=== PATIENT | female | born 1990 | race Caucasian/White ===

== ENCOUNTER 2019-12-28 07:10 | Inpatient (IN) ==
[2019-12-28] MEDS: LACTATED RINGERS 1,000 ML IV SCH ×2 (07:30→17:07)
[2019-12-28] MEDS ORDERED: miSOPROStoL 200 MCG TABLET VAG PRN (08:05)
[2019-12-28] MEDS ORDERED: LACTATED RINGERS 500 ML IV PRN (08:05)
[2019-12-28] MEDS ORDERED: TERBUTALINE 1 MG/1 ML VIAL SUBCUT PRN (08:05)
[2019-12-28] MEDS ORDERED: BUTORPHANOL 2 MG/ML VIAL IV PRN (08:05)
[2019-12-28] MEDS ORDERED: LIDOCAINE 1% 50 ML VIAL MISC INJ ONE (08:05)
[2019-12-28] MEDS ORDERED: CARBOPROST TROMETHAMINE 250 MCG/ML AMP IM PRN (08:05)
[2019-12-28 08:53] LABS: Basophils % 0.3 % (0.0-0.8); Eosinophils # 0.1 10*3/uL (0.0-0.87); Eosinophils % 0.8 % (0.00-10.9); Hematocrit 35.5 VOL% (35.7-47.0); Hemoglobin 11.5 GM/DL (12.0-16.0); Immature Granulocytes % 1.4 %; Immature Granulocytes Absolute 0.13 #; Lymphocytes # 2.2 10*3/uL (1.4-4.0); Mean Corpuscular HGB Conc 32.4 GM/DL (32-36); Mean Corpuscular Volume 89.2 FL (87-102); Mean Platelet Volume 10.7 FL (9.6-12.0); Monocytes % 9.7 % (1.7-12.7); Neutrophils % 63.8 % (38.7-73.9); Platelet Count 277 T/CUMM (130-400); Red Blood Count 3.98 MC/CUMM (3.8-5.5); Red Cell Distribution Width 14.8 % (9.3-17.3)
[2019-12-28] MEDS: OXYTOCIN/LR 20 UNIT/1,000 ML BAG IV SCH (09:11)
[2019-12-28] MEDS ORDERED: CITRIC ACID/SODIUM CITRATE 30 ML UDCUP PO ONE (18:58)
[2019-12-28] MEDS ORDERED: FAMOTIDINE 20 MG/2 ML VIAL IV ONE (18:58)
[2019-12-28] MEDS ORDERED: LACTATED RINGERS 1,000 ML IV ONE (18:58)
[2019-12-28] MEDS ORDERED: NALOXONE 0.4 MG/ML VIAL IV PRN (18:58)
[2019-12-28] MEDS ORDERED: hydrOXYzine HCL 25 MG/1 ML VIAL IM PRN (18:58)
[2019-12-28] MEDS ORDERED: diphenhydrAMINE 50 MG/1 ML VIAL IV PRN ×2 (18:58)
[2019-12-28] MEDS ORDERED: ePHEDrine 50 MG/ML VIAL IV PRN (18:58)
[2019-12-28] MEDS ORDERED: fentaNYL 2 MCG/ROPIV 0.2% EPID 100 ML EPIDURAL SCH (19:00)
[2019-12-28] MEDS: ONDANSETRON 4 MG/2 ML VIAL IV PRN (21:53)
[2019-12-29] MEDS ORDERED: TRANEXAMIC ACID 1,000 MG/10 ML VIAL ONE (01:54)
[2019-12-29] MEDS ORDERED: miSOPROStoL 200 MCG TABLET ONE (01:54)
[2019-12-29] MEDS ORDERED: OXYTOCIN/LR 20 UNIT/1,000 ML BAG IV ONE (01:55)
[2019-12-29] MEDS ORDERED: METHYLERGONOVINE 0.2 MG/1 ML AMP ONE (01:55)
[2019-12-29] MEDS ORDERED: CARBOPROST TROMETHAMINE 250 MCG/ML AMP IM ONE (01:55)
[2019-12-29] MEDS ORDERED: ceFAZolin 2,000 MG in PREMIX 1 EACH IV ONE (06:28)
[2019-12-29] MEDS: LACTATED RINGERS 1,000 ML IV SCH (06:38)
[2019-12-29 07:25] LABS: Cord Arterial Blood HCO3 21.9 MMOL/L
[2019-12-29 07:26] LABS: Cord Venous Blood HCO3 21.6 MMOL/L; Cord Venous Blood PCO2 35.6 MMHG; Cord Venous Blood PO2 30.3 MMHG
[2019-12-29 07:51] LABS: Apearance,Urine Slightly Hazy (Clear); Bilirubin,Urine Negative (Negative); Blood, Urine Large mg/dL (Negative); Glucose,Urine (UA) Negative (Negative); Ketones,Urine Negative (Negative); Mucus,Urine Occasional /LPF (Occasional); Nitrite,Urine Negative (Negative); Protein,Urine 30 MG/DL; RBC,Urine 1614 /HPF (0-4); Urine Color Red (Yellow); Urine Specific Gravity 1.012 (1.001-1.035); Urine Urobilinogen < 2.0 EU/DL (0.2-1.0); WBC,Urine 44 /HPF (0-6)
[2019-12-29] MEDS: ONDANSETRON 4 MG/2 ML VIAL IV PRN (08:05)
[2019-12-29] MEDS ORDERED: MORPHINE 10 MG/10 ML VIAL ONE (08:06)
[2019-12-29] MEDS ORDERED: MIDAZOLAM 2 MG/2 ML VIAL ONE (08:07)
[2019-12-29] MEDS ORDERED: LIDOCAINE MPF 2% /EPI 20 ML VIAL ONE (08:08)
[2019-12-29] MEDS ORDERED: PHENYLEPHRINE 1 MG/10 ML SYRINGE IV ONE (08:08)
[2019-12-29] MEDS: OXYTOCIN/LR 20 UNIT/1,000 ML BAG IV SCH (09:39)
[2019-12-29] MEDS ORDERED: HYDROmorphone 2 MG/1 ML VIAL IV PRN (09:43)
[2019-12-29] MEDS: ceFAZolin 1,000 MG in SYRINGE 1 EACH IV SCH (16:05)
[2019-12-29] MEDS: KETOROLAC 30 MG/1 ML VIAL IV PRN (23:55)
[2019-12-30] MEDS: ceFAZolin 1,000 MG in SYRINGE 1 EACH IV SCH
[2019-12-30] MEDS ORDERED: SIMETHICONE CHEW 80 MG TABLET PO PRN (00:09)
[2019-12-30 05:56] LABS: Basophils % 0.2 % (0.0-0.8); Eosinophils # 0.1 10*3/uL (0.0-0.87); Eosinophils % 0.6 % (0.00-10.9); Hematocrit 28.8 VOL% (35.7-47.0); Hemoglobin 9.5 GM/DL (12.0-16.0); Immature Granulocytes % 0.8 %; Immature Granulocytes Absolute 0.11 #; Lymphocytes % 15.2 % (21.3-54.2); Mean Platelet Volume 10.8 FL (9.6-12.0); Monocytes % 10.4 % (1.7-12.7); Neutrophils % 72.8 % (38.7-73.9); Platelet Count 231 T/CUMM (130-400); Red Cell Distribution Width 14.9 % (9.3-17.3); White Blood Count 13.4 T/CUMM (4-12)
[2019-12-30] MEDS: KETOROLAC 30 MG/1 ML VIAL IV PRN (06:05)
[2019-12-30] MEDS ORDERED: RHO(D) IMMUNE GLOBULIN 300 MCG SYRINGE IM ONE (09:07)
[2019-12-30] MEDS: IBUPROFEN 800 MG TABLET PO PRN ×3 (10:25→23:28)
[2019-12-30] MEDS: ACETAMINOPHEN/CODEINE 300-30 MG TABLET PO PRN ×2 (17:30→23:29)
[2019-12-30] MEDS ORDERED: ACETAMINOPHEN/CODEINE 300-30 MG TABLET PO PRN (17:35)
[2019-12-31] MEDS: IBUPROFEN 800 MG TABLET PO PRN ×2 (09:40→22:05)
[2019-12-31] MEDS: ACETAMINOPHEN/CODEINE 300-30 MG TABLET PO PRN ×2 (10:25→22:04)
[2020-01-01 08:27] VITALS: BP 132/71
[2020-01-01] MEDS: IBUPROFEN 800 MG TABLET PO PRN (11:10)
[2020-01-01] MEDS ORDERED: DIPH/TET/ACEL PERT BOOSTER VACCINE 0.5 ML VIAL IM ONE (11:34)
== END 2020-01-01 12:35 | disposition home or self-care (01) | DRG 787 ==
LOC: N.LD 07:10 → N.OB 12-29 11:20
PROVIDERS: ADMIT Obstetrics & Gynecology; ATTEND Obstetrics & Gynecology
PROC: LDCSECT (ICD-10-PCS; 2019-12-29 07:00)